=== PATIENT | male | born 1980 | race Caucasian/White ===

== ENCOUNTER 2020-12-17 16:38 | Emergency (ER) | payer BC ==
[~2020-12-17] VITALS: Ht 172.7 cm; Wt 117.9 kg
[~2020-12-17 16:38] MED LIST: CYCLOBENZAPRINE10 MG PO; NAPROSYN500 MG PO
[2020-12-17 16:50] VITALS: BP 138/88
[2020-12-17] MEDS ORDERED: ACYCLOVIR800 MG PO (17:35)
[2020-12-17] MEDS ORDERED: HYDROCODONE-AC1 EAC1 PO (17:35)
[2020-12-17] MEDS ORDERED: NEURONTIN300 MG PO (17:36)
== END 2020-12-17 17:41 | disposition home or self-care (01) ==
LOC: ED 16:38
DX: B02.9 Zoster without complications (principal); F17.200 Nicotine dependence, unspecified, uncomplicated; Z79.899 Other long term (current) drug therapy; Z98.890 Other specified postprocedural states

== ENCOUNTER → 2021-01-05 | Outpatient (CLI) | payer BC ==
[~2021-01-05] MED LIST changes: +ACYCLOVIR800 MG PO; +HYDROCODONE-AC1 EAC1 PO; +NEURONTIN300 MG PO
[2021-01-05 08:41] LABS: HEMATOCRIT 48.6 % (42.0-52.0); MEAN CELL VOLUME 93.5 fl (80.0-94.0); MEAN CORPUSCULAR HGB CONC 33.1 g/dl (33.0-37.0); MEAN PLATELET VOLUME 11.3 fl (9.6-12.3); RED BLOOD COUNT 5.2 10*6/uL (4.50-5.90); RED CELL DISTRI WIDTH 13.1 % (0-14.5); WHITE BLOOD COUNT 8.3 10*3/uL (4.8-10.8)
[2021-01-05 09:41] LABS: ALBUMIN 3.7 gm/dl (3.1-4.5); BUN 14 mg/dl (7-24); CHLORIDE 110 mmol/L (98-107); CHOLESTEROL 137 mg/dL (<200); CREATININE 0.91 mg/dL (0.70-1.30); LDL CHOLESTEROL 83 mg/dL (9-159); POTASSIUM 4.2 mmol/L (3.5-5.1); SGOT/AST 18 IU/L (3-35); SGPT/ALT 53 U/L (12-78); SODIUM 141 mmol/L (136-145); TOTAL PROTEIN 6.8 gm/dL (6.4-8.2); TRIGLYCERIDES 73 mg/dl (<150)
[2021-01-05 09:50] LABS: ALKALINE PHOSPHATASE 65 U/L (45-117)
== END | disposition home or self-care (01) ==
LOC: LAB 08:00
PROVIDERS: ATTEND Physician Assistant
DX: B02.30 Zoster ocular disease, unspecified (principal); F17.200 Nicotine dependence, unspecified, uncomplicated

== ENCOUNTER 2023-03-19 09:09 | Emergency (ER) | payer OTHER ==
[~2023-03-19] VITALS: Wt 93.0 kg
[2023-03-19 09:26] VITALS: BP 145/76
[2023-03-19] MEDS ORDERED: CEPHALEXIN500 M1 PO (10:59)
== END 2023-03-19 10:59 | disposition home or self-care (01) ==
LOC: ED 09:09
DX: S61.012A Laceration without foreign body of left thumb without damage to nail, initial encounter (principal); Z98.890 Other specified postprocedural states; X58.XXXA Exposure to other specified factors, initial encounter; Y93.89 Activity, other specified; Y92.89 Other specified places as the place of occurrence of the external cause; Y99.8 Other external cause status